=== PATIENT | male | born 1960 | race Caucasian/White ===

== ENCOUNTER 2018-08-27 06:50 | Inpatient (IN) ==
[2018-08-27] MEDS ORDERED: Albuterol 2.5 MG/3 ML NEBULIZER IH ONE (07:14)
[2018-08-27] MEDS ORDERED: CeFAZolin Syr 2,000MG/20 ML 2,000 MG/20 ML SYRINGE IVPB ONE (07:14)
[2018-08-27] MEDS ORDERED: Ringers Solution, Lactated 1,000 ML IVC SCH (07:15)
[2018-08-27] MEDS ORDERED: Heparin 1,000 UNITS/500 mL 500 ML ONE (07:46)
[2018-08-27] MEDS ORDERED: Heparin 1,000 UNITS/500 mL 1,000 ML ONE (07:46)
--- NOTE | 2018-08-27 07:52 | Anesthesia Evaluation PreOp ---
Date of Encounter: 08/27/18 Time of Encounter: 07:50 - Past History Planned Operation: Fem-Fem bypass graft Cardiac History: HTN, Hyperlipidemia, Other (PVD) Pulmonary History: Smoker Other Medical History: Denies Any Significant HX Anesthesia History: No Prior Anesthetic Complications, Past Anesthesia (deisy common iliac aa stents) Alcohol Use: none, occasionally Drug use: none, marijuana Medications and Allergies Amlodipine Besylate 10 mg PO DAILY 08/19/18 [History] Aspirin 325 mg PO DAILY 08/19/18 [History] Atorvastatin Calcium [Lipitor] 20 mg PO DAILY 08/19/18 [History] BuPROPion [Wellbutrin] 100 mg PO DAILY 08/19/18 [History] Clopidogrel Bisulfate [Plavix] 75 mg PO DAILY 08/19/18 [History] Lisinopril [Zestril] 10 mg PO DAILY 08/19/18 [History] Sildenafil Citrate [Revatio] 20 mg PO DAILY PRN 08/19/18 [History] Bisoprolol/HCTZ 2.5/6.25 [Ziac 2.5/6.25] 1 tab PO DAILY 08/27/18 [History] 3 Allergy/AdvReac Type Severity Reaction Status Date / Time Iodinated Contrast- Oral and Allergy Severe See Verified 08/27/18 07:24 IV Dye Comments Penicillins Allergy Rash Verified 08/27/18 07:24 - Meds/Allergy Pre-op Review Medications Reviewed: Yes Allergies Reviewed: Yes Beta Blockers on Current Med List: Yes If Beta Blockers taken, Date/Time (Last Dose taken): 8am 08/26 Anesthesia Results - Labs Laboratory Tests 08/13/18 08/13/18 08/13/18 13:19 13:19 13:19 WBC 7.5 Hgb 17.3 H Hct 49.1 Plt Count 285 PT 10.8 INR 1.0 APTT 29.8 Sodium 140 Potassium 3.4 L Chloride 106 Carbon Dioxide 24 BUN 8 Creatinine 0.69 L Est Mean Plasma Glucose Hemoglobin A1c 08/26/18 10:04 WBC Hgb Hct Plt Count PT INR APTT Sodium Potassium Chloride Carbon Dioxide BUN Creatinine Est Mean Plasma Glucose 105 Hemoglobin A1c 5.3 - Imaging EKG: report reviewed (SINUS RHYTHM Electronically Signed On 08-13-2018 14:55:10 EDT by Osman Almeida) Anesthesia Exam O2 Sat Height 1.78 m Height 1.78 m Height 1.78 m Weight 65.317 kg Weight 65.317 kg Weight 65.317 kg O2 Sat by Pulse Oximetry 98 Vital Signs Temp Pulse Resp BP Pulse Ox 97.6 F 74 18 147/80 98 08/27/18 07:43 08/27/18 07:43 08/27/18 07:43 08/27/18 07:43 08/27/18 07:43 Weight: 65kg NPO (# of Hours): >8 - HEENT Pupil (Motor): Pupils equal, EOMI Mallampati: II Teeth: Edentulous Denture Type: Upper: Complete Oral Opening: Greater than 3 - 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
[2018-08-27] MEDS ORDERED: Ketamine *HR* 500 MG/10 ML MDV ONE (07:59)
[2018-08-27] MEDS ORDERED: Acetaminophen IV 1,000 MG/100 ML INFUS..BTL ONE (08:00)
--- NOTE | 2018-08-27 08:01 | History & Physical Report ---
Date of Encounter: 08/27/18 Time of Encounter: 07:58 24 Hour HP Update - Instructions Instructions: If the History and Physical is less than 30 days old and was completed prior to A.M. admission and or procedure and has NOT been updated on calendar day of procedure please complete this update prior to performing procedure. - Update Patient reports changes in Medical Condition: No Changes in examination, assessment, or condition: No Changes in Medication: No Preop tests/diagnostics Reviewed: Yes Surgery Remains Indicated: Yes Consent for Planned Operative Procedure(s) Verified: Yes - Pre-Operative Checklist Preoperative Checklist Indicated: Yes Prophylactic Antibiotic Ordered: Yes (vancomycin due to MRSA risk) Home Medications Include Beta John: No Beta John Taken Today (Day of Surgery): No Beta John Taken Yesterday (Day Prior to Surgery): No Is VTE Prophylaxis Indicated?: Yes
[2018-08-27] MEDS ORDERED: *HR* FentaNYL (PF) 100 MCG/2 ML VIAL ONE (08:09)
[2018-08-27] MEDS ORDERED: *HR* Midazolam HCl 2 MG/2 ML VIAL ONE (08:10)
[2018-08-27] MEDS ORDERED: *HR* Propofol 200 MG/20 ML VIAL IVP ONE (08:10)
[2018-08-27] MEDS ORDERED: *HR* Rocuronium Bromide 50 MG/5 ML VIAL ONE (08:12)
[2018-08-27] MEDS ORDERED: Lidocaine -MPF 2% 2 ML VIAL ONE ×2 (08:12→08:21)
[2018-08-27] MEDS ORDERED: Vancomycin 1,000 MG, Sodium Chloride IRRigation 1,000 ML IR ONE (08:15)
[2018-08-27] MEDS ORDERED: Ondansetron 4 MG/2 ML VIAL ONE ×2 (09:00→12:15)
[2018-08-27] MEDS ORDERED: Dexamethasone 4 MG/ML VIAL ONE ×2 (09:00→12:15)
[2018-08-27] MEDS ORDERED: *HR* Heparin 5,000 UNIT/ML VIAL ONE (09:26)
[2018-08-27] MEDS ORDERED: Protamine Sulfate 50 MG/5 ML VIAL IVP ONE (10:01)
[2018-08-27] MEDS ORDERED: Ketorolac 30 MG/ML VIAL ONE (10:07)
[2018-08-27] MEDS ORDERED: *HR* Morphine 10 MG/ML VIAL ONE (10:25)
[2018-08-27] MEDS ORDERED: Neostigmine Methylsulfate 3 MG/3 ML SYRINGE ONE (10:29)
[2018-08-27] MEDS ORDERED: *HR* OxyCODONE Immed Rel 5 MG TABLET PO PRN ×2 (10:37→13:02)
[2018-08-27] MEDS ORDERED: *HR* Labetalol 20 MG/4 ML SYRINGE IVP PRN (10:37)
[2018-08-27] MEDS ORDERED: *HR* Promethazine 25 MG/ML VIAL IVP PRN (10:37)
--- NOTE | 2018-08-27 10:51 | Operative Note ---
Date of procedure: 08/27/18 Pre-op diagnosis: Peripheral vascular disease with disabling claudication Post-op diagnosis: same Procedure: Left common femoral artery to right common femoral artery bypass with 6 mm ring reinforced PTFE graft Complications: None Anesthesia: GETA Surgeon: Tom Sandoval Was there an assistant auto center manager present: Yes Cutting Machine Tender Decorative: Lui Rodriguez Estimated blood loss (cc): 50 Specimen: None Condition: stable Disposition: PACU Procedure in Detail: Indications: The patient is a 57year old male with history of hyperlipidemia, hypertension, tobacco abuse and peripheral vascular disease with disabling claudication. The patient was noted to have a chronically occluded right common iliac stent. Revascularization was recommended to alleviate his symptoms. Procedure: The patient was identified in the preoperative area. The risks, benefits, and alternatives of the procedure were discussed. All questions were answered. The patient was taken to the operating room and placed in supine position on the operating room table. After the induction of general endotracheal anesthesia, he was cleaned and draped in normal sterile fashion. An oblique incision was made over the right groin sharply. Hemostasis was obtained with electrocautery. Through a process of blunt, sharp, and electrocautery dissection, the right femoral vessels were dissected circumferentially and surrounded with vessel loops. An oblique incision was then made over the left groin sharply. Hemostasis was obtained with electrocautery. Through a process of blunt, sharp, and electrocautery dissection, the left femoral vessels were dissected circumferentially and surrounded with vessel loops. A 6 mm ring reinforced PTFE graft was tunneled between the right and left femoral incisions. The patient received 5000 units of heparin intravenously. Tension was applied to the Vesseloops surrounded the left femoral vessels. A longitudinal arteriotomy was made in the left common femoral artery. The graft was was cut to fit the arterial defect and sutured in place with a running 6-0 Prolene. The vessels were flushed through the graft. Heparinized saline was infused into the graft lumen. The graft was clamped with an atraumatic clamp. Flow was restored in the right femoral vessels. Tension was applied to the left femoral artery vessel loops. An arteriotomy was made in the right common femoral artery and the graft was cut to fit the defect. The graft was anastamosed with a running 6-0 Prolene. Prior to completing the anastamosis, the right femoral vessels were flushed through the graft anastamosis and heparin was infused into the lumen. The anastamosis was completed and flow was restored in the left lower extremity. Thrombin and gelfoam were used at the proximal anastamosis. Polyphasic signals were noted distal to the right and left femoral anastamoses. The wounds were irrigated with antibiotic-containing saline. Platelet rich and platelet poor plasma were infused into the wounds. Meticulous hemostasis was obtained throughout the wound with electrocautery. Wounds were reapproximated with layers of 2-0 and 3-0 Vicryl. Skin was reapproximated with 3-0 Monocryl. Sterile dressing was applied. The patient was extubated and taken to recovery room in stable condition.
--- NOTE | 2018-08-27 11:04 | Operative Note ---
Date of procedure: 08/27/18 Pre-op diagnosis: Disabling claudication/PAD Post-op diagnosis: same Procedure: Totr-ed-vhder femoral-femoral bypass graft with 6 mm PTFE Complications: None Anesthesia: GETA Surgeon: Tom Sandoval Co-Surgeon: Lui Rodriguez Was there an habilitation assistant present: No Estimated blood loss (cc): 50 Specimen: None Condition: stable Disposition: PACU Procedure in Detail: History Mickey Gisbon is a 57-year-old white male with lifestyle limiting right lower extremity claudication. Workup has revealed a right iliac system occlusive disease. He now comes for reconstruction with a left to right femoral-femoral bypass graft. Procedure After informed consent was obtained the patient was taken to the operating room. General endotracheal anesthesia was established. The abdomen groin and upper thighs were sterilely prepped and draped. A timeout protocol was observed. A 2 surgical approach was utilized for this procedure due to the patient's comorbid conditions. Also for the need for intraoperative complex decision-making in to minimize complications associated with prolonged general anesthesia and blood loss. 2 incisions were made 1 over each of the femoral areas. Dissection was carried down to identify the common femoral artery. Common femoral artery was normal in size and soft. Controls obtained of the vessels. A deep subcutaneous tunnel was then created. A 6 mm PTFE graft was then passed through the tunnel. Heparin was administered a dose of 5000 units. After a three-minute delay the left femoral artery was clamped. An 11 blade knife and Conrad scissors were used to open the vessel. The donor anastomosis was then made from the inflow side in an end-to- side fashion using 6-0 Prolene suture. After sufficient sutures were placed on a could be achieved the graft was then cut to size and the right femoral artery was opened. The right side was the recipient side of the bypass. Again on this side and into side anastomosis was created. Leaving a small space open on the suture line the graft was flushed and then was allowed to backflush and the torres martinez right femoral system. The final few sutures were then placed. The graft wasn't opened. Pulsatile flow was then achieved into the right lower extremity. There is no hemodynamic distress with this maneuver. Hemostasis was achieved. Pulsatile flow was identified in the graft and into the proximal femoral system. Doppler evaluation was also made of the femoral vessels. The wounds are then irrigated. Hemostasis was achieved and then local anesthetic was injected into both wounds. The wounds were then closed in layers using absorbable suture. Dry sterile dressings were applied to both femoral incisions The patient was extubated in the operating room. He was then transported from the operating room to the recovery room in stable condition. There were no intraoperative complications.
[2018-08-27] MEDS: *HR* HYDROmorphone (PF) 1 MG/ML SYRINGE IVP PRN ×2 (11:10→11:23)
[2018-08-27] MEDS ORDERED: *HR* PHENYLEPHRINE 1,000 MCG/10 ML SYRINGE IVP ONE (11:50)
[2018-08-27] MEDS ORDERED: *HR* Phenylephrine 10 MG/ML VIAL ONE (11:57)
--- NOTE | 2018-08-27 12:07 | Anesthesia Evaluation Post Op ---
Date of Encounter: 08/27/18 Time of Encounter: 12:07 - Vital Signs Vital Signs: Vital Signs/O2 Sat/Glucose, Most Recent Temp Pulse Resp BP Pulse Ox 98.6 F 56 16 128/73 93 08/27/18 11:39 08/27/18 11:49 08/27/18 11:49 08/27/18 11:49 08/27/18 11:49 - Lungs Lungs: Clear Ascult./Percussion - Airway Airway: Non-obstructed - Cardiovascular Regular Rate - Mental Status Mental Status: Alert & Oriented, Answers Appropriately - Pain Pain Scale: 3 - Nausea Vomiting Nausea Vomiting: Not Present - Hydration Hydration: NPO - Discharge PostOp Status: Transfer Patient to floor
[2018-08-27] MEDS ORDERED: Ondansetron 4 MG/2 ML VIAL IVP PRN (13:02)
[2018-08-27] MEDS ORDERED: 0.9 % Sodium Chloride 1,000 ML IVC SCH (13:02)
[2018-08-27] MEDS ORDERED: Acetaminophen 325 MG TABLET PO PRN (13:02)
[2018-08-27] MEDS ORDERED: Naloxone 0.4 MG/ML INJ IVP PRN (13:02)
[2018-08-27] MEDS ORDERED: *HR* HYDROcodone/Acet 5/325 mg TABLET PO PRN (13:02)
[2018-08-27] MEDS ORDERED: OXYCODONE Oral CONC 10 MG/0.5 ML ORAL.SYG SL PRN (13:02)
[2018-08-27] MEDS: Aspirin 81 MG TAB.CHEW PO SCH (15:20)
[2018-08-27] MEDS: amLODIPine 5 MG TABLET PO SCH (15:20)
[2018-08-27] MEDS: BuPROPion SR (12 HR) 100 MG TABLET PO SCH (15:21)
[2018-08-27] MEDS: Bisoprolol/HCTZ 2.5/6.25 TABLET PO SCH (15:43)
[2018-08-27] MEDS: OXYCODONE Oral CONC 10 MG/0.5 ML ORAL.SYG SL PRN (18:27)
[2018-08-27] MEDS ORDERED: Vancomycin 1,000 MG in D5% in Water 250 ML IVPB ONE (19:00)
[2018-08-28 04:11] LABS: Basophils % 0.1 %; Eosinophils # 0.2 K/mcL (0.0-0.6); Eosinophils % 1.1 %; Hematocrit 41.5 % (37.5-50.1); Hemoglobin 14.2 g/dL (12.9-16.9); Immature Granulocytes % 0.4 % (0-4); Lymphocytes # 1.6 K/mcL (0.6-4.6); Lymphocytes % 10.2 %; Mean Corpuscular HGB Conc 34.2 g/dL (31.6-35.5); Mean Corpuscular Hemoglobin 31.8 pg (28.0-33.3); Mean Corpuscular Volume 92.8 fL (83.0-100.0); Mean Platelet Volume 9.8 fL (9.4-12.4); Monocytes # 1.4 K/mcL (0.0-1.3); Monocytes % 9.1 %; Platelet Count 260 K/mcL (140-400); Red Blood Count 4.47 M/mcL (4.19-5.50); Red Cell Distribution Width 13.1 % (11.5-14.5); Segmented Neutrophils % 79.1 %
[2018-08-28] MEDS: OXYCODONE Oral CONC 10 MG/0.5 ML ORAL.SYG SL PRN (04:12)
[2018-08-28 04:26] LABS: BUN/Creatinine Ratio 14 (6-26); Blood Urea Nitrogen 9 mg/dL (6-20); Calcium 8.8 mg/dL (8.6-10.3); Carbon Dioxide 25 mEq/L (23-29); Chloride 104 mEq/L (98-107); Glucose 129 mg/dL (70-105); Osmolality,Calculated 280 (280-300); Potassium 3.9 mEq/L (3.5-5.1); Sodium 135 mEq/L (136-145); eGFR For Non-African Americans > 60 (> 60)
[2018-08-28 04:48] LABS: Platelet Estimate Normal (Normal)
[2018-08-28] MEDS ORDERED: *HR* Heparin 5,000 UNIT/ML VIAL SQ SCH ×2 (06:00)
--- NOTE | 2018-08-28 06:55 | Discharge Summary ---
Date of Encounter: 08/28/18 Time of Encounter: 07:45 - Discharge Diagnosis (1) Atherosclerosis of [place] arteries of extremities with intermittent claudication, bilateral legs Priority: Primary Status: Chronic Comments: The patient is postoperative day #1 after a femoral to femoral artery bypass. His incisions are healing well. He has no hematomas. His pedal pulses are palpable. He will be discharged today. (2) Essential hypertension Priority: Secondary Status: Chronic Comments: He was counseled regarding atherosclerotic risk factor reduction. (3) Mixed hyperlipidemia Priority: Secondary Status: Chronic (4) Tobacco abuse Priority: Secondary Status: Chronic - Hospital Course Hospital course: Mr. Freeman is a 57 year old male with history of hypertension, hyperlipidemia and tobacco abuse. He is found have significant peripheral vascular disease with disabling claudication. He was noted to have a occluded right iliac stent. The patient was admitted on 08/27/2018. He is taken operating room where he underwent a femoral to femoral artery bypass. He tolerated the procedure well. He was discharged home in stable condition on postoperative day #1 without complications. Time spent discussing smoking cessation with patient: 3 to 10 minutes - Time Spent with Patient Total time spent providing and/or coordinating discharge services: - Discharge Medications Prescriptions: OxyCODONE/APAP 5/325 [Percocet 5/325 MG] 1 each PO Q6HR PRN 6 Days #24 tablet PRN Reason: Postoperative pain Home Medications: Amlodipine Besylate 10 mg PO DAILY 08/19/18 [History] Aspirin 325 mg PO DAILY 08/19/18 [History] Atorvastatin Calcium [Lipitor] 20 mg PO DAILY 08/19/18 [History] BuPROPion [Wellbutrin] 100 mg PO DAILY 08/19/18 [History] Clopidogrel Bisulfate [Plavix] 75 mg PO DAILY 08/19/18 [History] Lisinopril [Zestril] 10 mg PO DAILY 08/19/18 [History] Sildenafil Citrate [Revatio] 20 mg PO DAILY PRN 08/19/18 [History] Bisoprolol/HCTZ 2.5/6.25 [Ziac 2.5/6.25] 1 tab PO DAILY 08/27/18 [History] OxyCODONE/APAP 5/325 [Percocet 5/325 MG] 1 each PO Q6HR PRN 6 Days #24 tablet [Rx] Allergies/Adverse Reactions: 3 Allergy/AdvReac Type Severity Reaction Status Date / Time Iodinated Contrast- Oral and Allergy Severe See Verified 08/27/18 07:24 IV Dye Comments Penicillins Allergy Rash Verified 08/27/18 07:24 Date of admission: 08/27/18 12:24 Primary care physician: Sebas Osullivan MD Procedure(s) Performed: Femoral to femoral artery bypass graft Discharging clinician: Tom Sandoval Anticipated date of discharge: 08/28/18 Exam Vital Signs, Last 4 Hours Temp Pulse Resp BP Pulse Ox 08/28/18 03:35 97.9 F 56 18 120/78 96 General: Present: Conversant HEENT: Present: Pupils equal Cardiac: Present: Reg Rate and Rhythm Lungs: Present: Normal Breath Sounds Neuro: Present: Alert and responsive, Motor nerves grossly intact, Sensory nerves grossly intact Abdomen: Present: Soft, Non-tender. Absent: Masses Vascular: Present: Normal capillary refill, Pulse, normal, Surgical incisions ( Incisions clean, dry and intact without erythema or drainage, no hematoma). Absent: Cyanosis, Edema - Patient Status Disposition: Home, Self-Care Condition: Good Functional capacity at discharge: independent ambulation Overall status at discharge: patient is back to baseline - Discharge Instructions Instructions: Oxycodone/Acetaminophen (By mouth), Femoropopliteal Bypass (DC) Follow Up With: Sebas Osullivan MD [Primary Care Provider] - Tom Sandoval MD [Partnered Physician] - 09/21/18 9:40 am Additional Instructions: May remove bandage and shower on 08/29/2018. Wash wounds gently and pat to dry. Applied dry bandages to wounds daily for 7 days. No tub baths or swimming until 09/19/2018. Call Dr. Sandoval at [phone] with questions or concerns. - Diet and Activity Activity: increase activity as tolerated Diet: advance to your usual diet
[2018-08-28 07:08] VITALS: BP 120/68
[2018-08-28] MEDS: Bisoprolol/HCTZ 2.5/6.25 TABLET PO SCH (07:39)
[2018-08-28] MEDS: amLODIPine 5 MG TABLET PO SCH (07:39)
[2018-08-28] MEDS: BuPROPion SR (12 HR) 100 MG TABLET PO SCH ×2 (07:39→07:48)
[2018-08-28] MEDS: Aspirin 81 MG TAB.CHEW PO SCH (07:39)
== END 2018-08-28 09:47 | disposition home or self-care (01) | DRG 254 ==
LOC: SAMDAY 06:50 → 2NNU 12:24
PROVIDERS: ADMIT Surgery; ATTEND Surgery
PROC: VASFFBG (ICD-10-PCS; 2018-08-27 08:15)